=== PATIENT | male | born 1950 | race Caucasian/White ===

== ENCOUNTER → 2016-08-21 | Outpatient (CLI) | payer OTHER ==
[2016-08-21 18:45] LABS: ALT/SGPT 16 U/L (12-78); AST/SGOT 16 U/L (15-37); BLOOD UREA NITROGEN 17 mg/dl (7-18); BUN/CREATININE RATIO 13.2 (10-20); CALCIUM 9.1 mg/dl (8.5-10.1); CARBON DIOXIDE 29 mmol/L (21-32); CHLORIDE 102 mmol/L (98-107); GLUCOSE 98 mg/dl (70-99); POTASSIUM 4.1 mmol/L (3.5-5.1); SODIUM 138 mmol/L (136-145)
[2016-08-21 18:48] LABS: CHOLESTEROL 272 mg/dl (0-200); CHOLESTEROL/HDL RATIO 3.5; HDL CHOLESTEROL 78 mg/dl; LDL CHOLESTEROL CALCULATED 177 mg/dl; TRIGLYCERIDES 86 mg/dl (0-150); VERY LOW DENSITY LIPOPROT CALC 17 mg/dl
== END | disposition home or self-care (01) ==
LOC: C.LABMFLN 09:34
PROVIDERS: ATTEND Family Medicine
DX: E78.00 Pure hypercholesterolemia, unspecified (principal)

== ENCOUNTER → 2016-10-06 | Outpatient (CLI) | payer OTHER ==
[~2016-10-06] MED LIST: ACET-1256 PO; ASPI81TA28 PO; ATOR-22 PO; OXYC-57 PO; RANI-316 PO
[2016-10-06 18:58] LABS: LYME DISEASE AB IGM NEG (NEG)
[2016-10-06 19:01] LABS: LYME DISEASE AB IGG NEG (NEG)
== END | disposition home or self-care (01) ==
LOC: C.LABMFLN 13:56
PROVIDERS: ATTEND Family Medicine
DX: L03.90 Cellulitis, unspecified (principal)

== ENCOUNTER → 2017-02-12 | Outpatient (CLI) | payer OTHER | END | disposition home or self-care (01) | LOC: C.LABMFLN 08:48 | PROVIDERS: ATTEND Family Medicine | DX: I25.10 Atherosclerotic heart disease of native coronary artery without angina pectoris (principal) ==

== ENCOUNTER → 2017-05-02 | Outpatient (CLI) | payer OTHER ==
--- NOTE | 2017-05-02 14:16 | EXERCISE STRESS ECHO ---
*NOTICE TO RECEIVING [employer] This information is strictly Confidential and protected under [place] law. [place] law prohibits you from making any further disclosure of this information unless further disclosure is expressly permitted by the written consent of the person to whom it pertains or is authorized by law. A general authorization for the release of medical or other information is not sufficient for this purpose. Hospital accepts no responsibility if the information is made available to any other person, INCLUDING THE PATIENT. Interpretation Summary * Name: AR SKAGGS Study Date: 05/02/2017 09:17 AM BP: 115/84 mmHg * Patient Location: [facility] HR: 88 * : 1950 (M/d/yyyy) Gender: Male Height: 65 in * Age: 67 yrs Ethnicity: CA Weight: 143 lb * Ordering Physician: Florian Lucio * Referring Physician: Florian Lucio * Performed By: Zuleyka Warren RDCS * * Reason For Study: Atypical Chest Pain (786.59) Right Bundle Branch Block (426.4) * BSA: 1.7 m2 * -- Conclusions -- * Left ventricular systolic function is normal. * Grade I diastolic dysfunction, (abnormal relaxation pattern). * Right ventricular systolic pressure is normal. * Normal exercise echocardiogram without evidence of inducible ischemia Procedure Details * ECHOEX, CPT #[id number] * ECHO DOPPLER, CPT #[id number] * ECHO COLOR FLOW, CPT #[id number] Left Ventricular Findings with Stress * Normal exercise echocardiogram without evidence of inducible ischemia Left Ventricle * The left ventricle is normal in size. * There is normal left ventricular wall thickness. * Ejection Fraction = 50-55%. * Left ventricular systolic function is normal. * Grade I diastolic dysfunction, (abnormal relaxation pattern). * The left ventricular wall motion is normal at rest. Right Ventricle * The right ventricle is normal in size and function. * The right ventricular systolic function is normal as assessed by tricuspid annular plane systolic excursion (TAPSE) (normal >1.5 cm). Atria * The left atrial size is normal. * Right atrial size is normal. Mitral Valve * The mitral valve anatomy is normal. * Significant mitral regurgitation is absent. Tricuspid Valve * The tricuspid valve is not well visualized, but is grossly normal. * There is trace tricuspid regurgitation. * Right ventricular systolic pressure is normal. Aortic Valve * The aortic valve is normal in structure and function. * The aortic valve is trileaflet. * No hemodynamically significant valvular aortic stenosis. * There is no significant aortic regurgitation. Great Vessels * The aortic root is normal size. Pericardium * There is no pericardial effusion. Stress Parameters * Sinus rhythm with right bundle branch block * Stress ECG: No ST changes. No arrhythmias. * The stress portion of this study was personally supervised by the undersigned interpreting physician. * Rest heart rate was '88' BPM. * Rest blood pressure was '115/84' * Maximum heart rate achieved was 162 bpm. * Maximum heart rate was 104 % of maximum age-predicted heart rate. * Maximum blood pressure was '160/60' * Total exercise time was '08:00' * Maximum exercise MET level achieved was '10.10' METS * Maximum treadmill speed was '3.40' miles per hour. * Maximum treadmill elevation was '14.00'% grade. Left Ventricular Findings with Stress * Baseline EKG demonstrated right bundle branch block There were no significant ST segment changes with exercise or recovery Baseline echocardiographic images revealed normal wall motion There was normal augmentation of all valverde without development of wall motion abnormalities during exercise No symptoms reported Normal heart rate and blood pressure response to exercise MMode 2D Measurements and Calculations IVSd 1.0 cm IVSs 1.5 cm LVIDd 4.5 cm LVIDs 2.4 cm LVPWd 0.94 cm LVPWs 1.4 cm IVS/LVPW 1.1 FS 46.7 % EDV(Teich) 91.7 ml ESV(Teich) 19.9 ml EF(Teich) 78.3 % EDV(cubed) 90.2 ml ESV(cubed) 13.6 ml EF(cubed) 84.9 % % IVS thick 41.1 % % LVPW thick 44.0 % LV mass(C)d 150.1 grams LV mass(C)dI 87.5 grams/m\S\2 LV mass(C)s 106.7 grams LV mass(C)sI 62.2 grams/m\S\2 SV(Teich) 71.8 ml SI(Teich) 41.8 ml/m\S\2 SV(cubed) 76.5 ml SI(cubed) 44.6 ml/m\S\2 Ao root diam 2.9 cm Ao root area 6.4 cm\S\2 ACS 1.9 cm LA dimension 2.9 cm LA/Ao 1.0 LVAd ap4 27.8 cm\S\2 LVLd ap4 7.8 cm EDV(MOD-sp4) 83.7 ml EDV(sp4-el) 83.3 ml LVAs ap4 17.2 cm\S\2 LVLs ap4 6.9 cm ESV(MOD-sp4) 39.5 ml ESV(sp4-el) 36.4 ml EF(MOD-sp4) 52.9 % EF(sp4-el) 56.3 % LVAd ap2 25.4 cm\S\2 LVLd ap2 7.7 cm EDV(MOD-sp2) 75.3 ml EDV(sp2-el) 70.8 ml LVAs ap2 14.8 cm\S\2 LVLs ap2 6.3 cm ESV(MOD-sp2) 31.8 ml ESV(sp2-el) 29.2 ml EF(MOD-sp2) 57.8 % EF(sp2-el) 58.8 % LVLd %diff -1.30 % EDV(MOD-bp) 79.7 ml LVLs %diff -9.12 % ESV(MOD-bp) 36.8 ml EF(MOD-bp) 53.8 % SV(MOD-sp4) 44.2 ml SI(MOD-sp4) 25.8 ml/m\S\2 SV(MOD-sp2) 43.5 ml SI(MOD-sp2) 25.4 ml/m\S\2 SV(MOD-bp) 42.8 ml SI(MOD-bp) 25.0 ml/m\S\2 SV(sp4-el) 46.9 ml SI(sp4-el) 27.3 ml/m\S\2 SV(sp2-el) 41.7 ml SI(sp2-el) 24.3 ml/m\S\2 Doppler Measurements and Calculations MV E max roberto 42.3 cm/sec MV A max roberto 60.0 cm/sec MV E/A 0.71 MV dec time 0.30 sec Ao V2 max 106.4 cm/sec Ao max PG 4.5 mmHg Ao max PG (full) 1.2 mmHg LV V1 max PG 3.3 mmHg LV V1 max 91.5 cm/sec PA V2 max 74.4 cm/sec PA max PG 2.2 mmHg PI max roberto 111.7 cm/sec PI max PG 5.0 mmHg PI dec slope 97.9 cm/sec\S\2 PI P1/2t 334.3 msec TR max roberto 124.1 cm/sec
== END | disposition home or self-care (01) ==
LOC: C.CPL 07:40
PROVIDERS: ATTEND Family Medicine
DX: I45.10 Unspecified right bundle-branch block (principal); R07.89 Other chest pain

== ENCOUNTER → 2017-05-04 | Day surgery (SDC) | payer OTHER ==
[2017-04-27 09:18] VITALS: Ht 166.4 cm; Wt 63.8 kg
--- NOTE | 2017-04-27 09:54 | PAT Medication Instructions ---
Service Date Apr 27, 2017. Current Home Medication List Acetaminophen (Tylenol), 1,000 MG PO PRN Aspirin (Aspirin Ec), 81 MG PO QPM Atorvastatin (Lipitor), 20 MG PO QPM Ranitidine HCl (Acid Drapery Supervisor), 150 MG PO QPM Medication Instructions For Your Scheduled Surgery - Check with surgeon for instructions: Aspirin (Aspirin Ec), 81 MG PO QPM - Take the following medications the morning of surgery with a sip of water: Acetaminophen (Tylenol), 1,000 MG PO PRN (okay to take up to 4 hours prior to surgery if needed) - Take the following medications as scheduled the night before surgery: Atorvastatin (Lipitor), 20 MG PO QPM Ranitidine HCl (Acid Drapery Supervisor), 150 MG PO QPM Acetaminophen (Tylenol), 1,000 MG PO PRN (if needed) If you have any questions please call us at [phone] or [phone] or [phone]
--- NOTE | 2017-04-27 10:53 | DIAGNOSTIC IMAGING REPORT ---
CHEST PREADMISSION(PA/LAT) CLINICAL HISTORY: PAT preoperative evaluation COMPARISON STUDY: No previous studies for comparison. FINDINGS: The bones soft tissues and hemidiaphragms are normal. The cardiomediastinal silhouette is normal. The lungs are clear. The pulmonary vasculature is normal. Chronic fibrocalcific changes and upper lungs bilaterally most likely chronic. IMPRESSION: No acute process. Chronic change. The above report was generated using voice recognition software. It may contain grammatical, syntax or spelling errors. Electronically signed by: Peter Sharp M.D. 04/27/2017 10:52 AM Dictated Date/Time: 04/27/2017 10:51 AM
[2017-04-27 11:09] LABS: BASO % 0.8 %; BASO ABS # 0.06 K/uL (0-0.2); COMPLETE YES; EOS % 9.8 %; HEMATOCRIT 45.5 % (42-52); IG% 0.3 %; LYMPH % 24.1 %; LYMPH ABS # 1.75 K/uL (1.2-3.4); MEAN CELL VOLUME 92.7 fL (80-100); MEAN CORPUSCULAR HGB CONC 33.4 g/dl (32-36); MEAN PLATELET VOLUME 11.5 fL (7.4-10.4); MONO % 6.2 %; NEUT % 58.8 %; PLATELET COUNT 227 K/uL (130-400); RED BLOOD COUNT 4.91 M/uL (4.7-6.1); WHITE BLOOD COUNT 7.26 K/uL (4.8-10.8)
[2017-04-27 11:19] LABS: BUN/CREATININE RATIO 8.2 (10-20); CREATININE 1.04 mg/dl (0.60-1.40); PARTIAL THROMBOPLASTIN RATIO 1.2; PROTHROMBIN TIME (PATIENT) 11.2 SECONDS (9.0-12.0)
[2017-04-27 11:30] LABS: URINE APPEARANCE CLEAR (CLEAR); URINE BILIRUBIN NEG (NEG); URINE COLOR YELLOW; URINE EPITHELIAL CELL AUTO 0-5 /lpf (0-5); URINE NITRITE NEG (NEG); UROBILINOGEN NEG (NEG); ZZUR CULT IF INDIC CLEAN CATCH NO
[2017-04-27 11:31] LABS: MANUAL MICROSCOPIC REQUIRED? NO; REVIEW REQ? NO
--- NOTE | 2017-04-30 11:56 | History and Physical ---
History & Physical Date Apr 30, 2017. Chief Complaint Left elbow pain History of Present Illness The patient is a 67 year old male with complaints of left elbow pain and numbness. He has tried conservative therapy with no relief. He is scheduled for left cubital tunnel release with possible submuscular transposition. Past Medical/Surgical History PMHx: hypercholesteremia, sleep apnea, anxiety, osteoarthritis, GERD, history of vocal cord cancer PSHx: Catheterization, Left knee surgery, hernia repair, Right shoulder surgery, ORIF collar bone, removal of mass from vocal cord Additional History Hepatic Disease: No Endocrine Disorder: No Kidney Disease: No Hypertension: No Heart Disease: No Bleeding Tendencies: No Infectious Diseases: No Allergies Coded Allergies: Penicillins (Verified Allergy, Unknown, HIVES, 04/27/17) Sulfa Antibiotics (Verified Allergy, Unknown, HIVES, 04/27/17) Home Medications Scheduled Acetaminophen (Tylenol), 1,000 MG PO PRN Aspirin (Aspirin Ec), 81 MG PO QPM Atorvastatin (Lipitor), 20 MG PO QPM Ranitidine HCl (Acid Assembler Equipment), 150 MG PO QPM Physical Examination Skin: warm/dry, no rash Eyes: normal inspection, EOMI ENT: normal ENT inspection Head: normocephalic, atraumatic Neck: supple, no adenopathy Respiratory/Chest: lungs clear, normal breath sounds Cardiovascular: regular rate, rhythm, no murmur Abdomen / GI: normal bowel sounds, non tender Extremities: normal inspection, + pertinent finding ((+) tinel sign over the ulnar nerve, ) Neurologic/Psych: no motor/sensory deficits, alert, oriented x 3 Diagnosis Left cubital tunnel syndrome Plan of Treatment Patient is scheduled for a left cubital tunnel release with possible submuscular transposition. Patient has failed conservative therapy. Risks and benefits were discussed with the patient. The patient understands the risks and wishes to proceed. All questions were answered to their satisfaction.
[~2017-05-04] VITALS: Ht 166.4 cm; Wt 63.8 kg
[~2017-05-04] MED LIST changes: +ACETAMINOPHEN 325 MG TAB PO PRN; +ATROPINE SULFATE 0.1 MG/ML 5ML SYR IV PRN; +BUPIVACAINE/EPINEPHRINE 0.5% MPF 1:200,000 30 ML VIAL ONE; +CLINDAMYCIN 600 MG/54 ML D5W IV SCH; +EpHEDrine SULFATE INJ 50 MG/ML AMP IV PRN; +FENTANYL CITRATE INJ 50 MCG/1 ML 2 ML VIAL IV PRN; +FENTANYL CITRATE INJ 50 MCG/1 ML 2 ML VIAL ONE; +FLUMAZENIL 0.1 MG/1 ML 10 ML VIAL IV PRN; +HYDROmorphone INJ 2 MG/ML SYR/VIAL IV PRN; +LABETALOL HCL IV 5 MG/ML 20ML IV PRN; +LACTATED RINGER'S 1000ML 1,000 ML IV SCH; +LIDOCAINE HCL 2% 2 ML VIAL (20MG/ML) ONE; +MEPERIDINE HCL 25 MG/ML CARP IV PRN; +METOPROLOL TARTRATE 1 MG/ML VIAL ONE; +MIDAZOLAM HCL 1 MG/ML 2ML VIAL ONE; +NALOXONE HCL 0.4 MG/1 ML VIAL/CARP IV PRN; +ONDANSETRON INJ 2 MG/ML 2 ML VIAL IV PRN; +OXYCODONE/ACETAMINOPHEN 5-325 TAB PO PRN; +PHENYLEPHRINE 100MCG/ML 5ML SYR IV PRN; +PHENYLEPHRINE 100MCG/ML 5ML SYR ONE; +PROPOFOL IV EMULSION 10 MG/ML 20 ML VIAL IV ONE
[2017-05-04 05:38] VITALS: BP 125/79; PULSE 83; TEMP 36.8; O2SAT 97
--- NOTE | 2017-05-04 06:49 | History & Physical Bridge Note ---
H&P Re-Evaluation Bridge Note: I have examined the patient, reviewed the History & Physical and in the interval since the performance of the History & Physical I have noted the following changes of clinical significance: No changes noted
--- NOTE | 2017-05-04 07:45 | [facility] Operative Report ---
Operative Report Operative Date May 04, 2017. Pre-Operative Diagnosis Left cubital tunnel syndrome Post-Operative Diagnosis Same as preop Procedure(s) Performed Left Elbow Cubital Tunnel Release Surgeon Dr. Kelly Fire Marshal Refinery Surgeon(s) Ha Farooq PA-C Estimated Blood Loss 1 ml Findings as above Specimens None per Surgeon Drains 0 Anesthesia geta Complication(s) None Disposition Recovery Room / PACU Indications 67-year-old male long-standing numbness tingling left hand. He has failed conservative measures. EMG confirms left cubital tunnel syndrome. He wishes to proceed with a left cubital tunnel release. Description of Procedure The patient has failed conservative measures. After failing conservative measures, the patient wished to proceed with a cubital tunnel release. Risks, benefits and alternatives to surgery including, but not limited to, infection, DVT, pain, stiffness, need for revision surgery, failure to relieve all symptoms , damage to blood vessels, damage to nerves, risk of anesthesia were discussed with the patient and they wished to proceed. Patient was identified. Laterality was confirmed and marked. The patient received a preoperative antibiotic. They were transferred to the operating room and placed in the supine position and given IV sedation. The upper arm had a well padded tourniquet applied and then prepped and draped in the usual standard manner with ChloraPrep. The limb was exsanguinated. The tourniquet was inflated. Incision site for the cubital tunnel release was then anesthetized with combination of lidocaine and Marcaine. I made a longitudinal incision posterior to the medial epicondyle in line with the ulnar nerve. I sharply incised through the skin and used Bovie electrocautery to achieve hemostasis. I took care to preserve and protect crossing nerve branches. Identified the cubital tunnel. I then dissected free the ulnar nerve through the cubital tunnel ensuring a complete release the cubital tunnel. I then carried the dissection proximally releasing it from the heads of the triceps. I then carried the dissection distally releasing it from the 2 heads of the FCU. I then checked the stability of the ulnar nerve. The ulnar nerve was found to be stable. The wound was then thoroughly irrigated and the subcutaneous tissue closed with interrupted 2-0 Vicryl suture and the skin with running 4-0 Monocryl and Steri- Strips. A posterior splint was placed. All needle and sponge counts were correct at the end of the procedure. Patient was transferred to the PACU in stable condition without apparent complication. I attest to the content of the Intraoperative Record and any orders documented therein. Any exceptions are noted below.
--- NOTE | 2017-05-04 07:58 | Discharge Instructions ---
Discharge Instructions Date of Service May 04, 2017. Admission Reason for Admission: Left Elbow Cubital Tunnel Syndrome Discharge Discharge Diagnosis / Problem: S/P left cubital tunnel release Discharge Goals Goal(s): Decrease discomfort, Improve function Activity Recommendations Activity Limitations: per Instructions/Follow-up section . Instructions / Follow-Up Instructions / Follow-Up ACTIVITY RECOMMENDATIONS: * Avoid lifting anything heavier than a medium water glass until your first post operative visit. * Start physical therapy 2-3 days after your surgery. A script will be provided for you after your surgery. * No soaking your elbow in water. You are allowed to take a shower 48 hours after surgery. Make sure to just let soapy water run over the incision. No hot tubs or swimming pools SPECIAL CARE INSTRUCTIONS: * Your bandage should be left in place until 48 hours after surgery. . * Some drainage onto the dressing may occur. This is normal. * If the bandage feels excessively tight, you may loosen the elastic bandage. Then call the physician's office for further instructions. * If possible, keep your hand elevated above the level of your heart for the first 2 post operative days. * You should move your fingers regularly (50-100 motions per hour) unless otherwise instructed. SPECIAL PRECAUTIONS: * If you notice increased drainage, fever over 101 degrees F. or severe, unremitting pain, call your physician/office at . * You may have been prescribed pain medication. If you experience nausea and/or skin rash, discontinue this medication and contact our office for an alternative medication. FOLLOW UP VISIT: If appointment is not already scheduled: Please call [facility] to make a follow-up appointment with Dr. Silva or his PA 10-14 days after your surgery at . Current Hospital Diet Patient's current hospital diet: Regular Diet Discharge Diet Recommended Diet: Regular Diet Procedures Procedures Performed: Left Elbow Cubital Tunnel Release Pending Studies Studies pending at discharge: no Laboratory Results Lipid Panel Test 02/12/17 08:50 Range/Units Triglycerides Level 91 0-150 mg/dl Cholesterol Level 232 H 0-200 mg/dl HDL Cholesterol 78 mg/dl Cholesterol/HDL Ratio 3.0 LDL Cholesterol, Calculated 136 mg/dl Medical Emergencies . Who to Call and When: Medical Emergencies: If at any time you feel your situation is an emergency, please call [phone] immediately. . Non-Emergent Contact Non-Emergency issues call your: Surgeon Call Non-Emergent contact if: temperature is above 101.5, your pain is worsening, wound has increased drainage, wound has increased redness . "Provider Documentation" section prepared by Beau Farooq. . VTE Core Measure Inpt VTE Proph given/why not?: Treatment not indicated [place] Drug Monitoring Program Search Results: patient reviewed within database, no issues identified
--- NOTE | 2017-05-04 08:33 | Anesthesiology Progress Note ---
Anesthesia Post Op Note Date & Time May 04, 2017 at 08:33 Vital Signs Pain Intensity: 0 Vital Signs Past 12 Hours Date Time Temp Pulse Resp B/P (MAP) Pulse Ox O2 Delivery O2 Flow Rate FiO2 05/04/17 07:56 36.8 88 16 123/74 99 Oxymask 10 05/04/17 05:38 36.8 83 18 125/79 (94) 97 Room Air Notes Mental Status: alert / awake / arousable, participated in evaluation Pt Amnestic to Procedure: Yes Nausea / Vomiting: adequately controlled Pain: adequately controlled Airway Patency, RR, SpO2: stable & adequate BP & HR: stable & adequate Hydration State: stable & adequate Anesthetic Complications: no major complications apparent
[2017-05-04 08:45] VITALS: BP 105/68; PULSE 88; TEMP 37.1; O2SAT 92
[2017-05-04 09:15] VITALS: BP 120/72; PULSE 85; TEMP 37; O2SAT 95
== END | disposition home or self-care (01) ==
LOC: C.ACU 05:11
PROVIDERS: ATTEND Orthopaedic Surgery
DX: G56.22 Lesion of ulnar nerve, left upper limb (principal); E78.00 Pure hypercholesterolemia, unspecified; G47.30 Sleep apnea, unspecified; K21.9 Gastro-esophageal reflux disease without esophagitis; M19.90 Unspecified osteoarthritis, unspecified site; F41.9 Anxiety disorder, unspecified; Z79.82 Long term (current) use of aspirin; Z79.899 Other long term (current) drug therapy

== ENCOUNTER → 2017-08-15 | Outpatient (CLI) | payer OTHER ==
[~2017-08-15] MED LIST changes: -ACETAMINOPHEN 325 MG TAB PO PRN; -ATROPINE SULFATE 0.1 MG/ML 5ML SYR IV PRN; -BUPIVACAINE/EPINEPHRINE 0.5% MPF 1:200,000 30 ML VIAL ONE; -CLINDAMYCIN 600 MG/54 ML D5W IV SCH; -EpHEDrine SULFATE INJ 50 MG/ML AMP IV PRN; -FENTANYL CITRATE INJ 50 MCG/1 ML 2 ML VIAL IV PRN; -FENTANYL CITRATE INJ 50 MCG/1 ML 2 ML VIAL ONE; -FLUMAZENIL 0.1 MG/1 ML 10 ML VIAL IV PRN; -HYDROmorphone INJ 2 MG/ML SYR/VIAL IV PRN; -LABETALOL HCL IV 5 MG/ML 20ML IV PRN; -LACTATED RINGER'S 1000ML 1,000 ML IV SCH; -LIDOCAINE HCL 2% 2 ML VIAL (20MG/ML) ONE; -MEPERIDINE HCL 25 MG/ML CARP IV PRN; -METOPROLOL TARTRATE 1 MG/ML VIAL ONE; -MIDAZOLAM HCL 1 MG/ML 2ML VIAL ONE; -NALOXONE HCL 0.4 MG/1 ML VIAL/CARP IV PRN; -ONDANSETRON INJ 2 MG/ML 2 ML VIAL IV PRN; -OXYCODONE/ACETAMINOPHEN 5-325 TAB PO PRN; -PHENYLEPHRINE 100MCG/ML 5ML SYR IV PRN; -PHENYLEPHRINE 100MCG/ML 5ML SYR ONE; -PROPOFOL IV EMULSION 10 MG/ML 20 ML VIAL IV ONE
[2017-08-15 13:10] LABS: ALT/SGPT 14 U/L (12-78); AST/SGOT 15 U/L (15-37); BLOOD UREA NITROGEN 11 mg/dl (7-18); CALCIUM 9.1 mg/dl (8.5-10.1); CARBON DIOXIDE 28 mmol/L (21-32); CREATININE 1.13 mg/dl (0.60-1.40); GLUCOSE 100 mg/dl (70-99); POTASSIUM 3.9 mmol/L (3.5-5.1); SODIUM 138 mmol/L (136-145)
[2017-08-15 13:15] LABS: CHOLESTEROL 188 mg/dl (0-200); LDL CHOLESTEROL CALCULATED 106 mg/dl
== END | disposition home or self-care (01) ==
LOC: C.LABMFLN 10:20
PROVIDERS: ATTEND Family Medicine
DX: Z12.5 Encounter for screening for malignant neoplasm of prostate (principal); I25.10 Atherosclerotic heart disease of native coronary artery without angina pectoris; E78.00 Pure hypercholesterolemia, unspecified

== ENCOUNTER → 2017-08-28 | Outpatient (CLI) | payer OTHER ==
--- NOTE | 2017-08-28 07:35 | DIAGNOSTIC IMAGING REPORT ---
AORTIC ULTRASOUND CLINICAL HISTORY: E78.00 hypercholesterolemia. Smoker. Evaluate for abdominal aortic aneurysm. Positive family history. COMPARISON STUDY: No previous studies for comparison. FINDINGS: The proximal abdominal aorta measured 23 x 21 mm. The mid abdominal aorta measured 19 x 17 mm. The distal abdominal aorta measures 17 x 17 mm. The right iliac measures 12 x 11 mm. The left iliac measures 10 x 12 mm. IMPRESSION: No evidence of abdominal aortic aneurysm. Electronically signed by: Vikram Flores M.D. 08/28/2017 7:34 AM Dictated Date/Time: 08/28/2017 7:32 AM
== END | disposition home or self-care (01) ==
LOC: C.ULTR 07:04
PROVIDERS: ATTEND Family Medicine
DX: E78.00 Pure hypercholesterolemia, unspecified (principal)

== ENCOUNTER → 2017-10-16 | Day surgery (SDC) | payer OTHER ==
[2017-10-09 13:49] VITALS: BMI 24.0
[~2017-10-16] VITALS: Ht 165.1 cm; Wt 65.9 kg
[~2017-10-16] MED LIST changes: -ACET-1256 PO; +ACET-176 PO; +ASPCH81X PO; -ASPI81TA28 PO; -ATOR-22 PO; +LIDOCAINE HCL 2% 2 ML VIAL (20MG/ML) ONE; -OXYC-57 PO; +PROPOFOL IV EMULSION 10 MG/ML 20 ML VIAL IV ONE; -RANI-316 PO; +RANI150T85 PO; +SIMV20TA2 PO; +SODIUM CHLORIDE 0.9% 500ML 500 ML IV ONE
[2017-10-16 09:26] VITALS: Ht 165.1 cm; Wt 65.9 kg
--- NOTE | 2017-10-16 09:42 | Endo History and Physical ---
History & Physical Date of Service: Oct 16, 2017. Chief Complaint: HX OF POLYPS LLQ PAIN Referring Physician: DR PENA History of Present Illness 67 yo CM who presents for colonoscopy secondary to history of colon polyps. Past Surgical History Hx Cardiac Surgery: Yes (HEART CATH X 2 (NO STENTS)) Hx Internal Defibrillator: No Hx Pacemaker: No Hx Abdominal Surgery: Yes (INGUINAL HERNIA) Hx of Implantable Prosthesis: No Hx Post-Op Nausea and Vomiting: No Hx Cancer Surgery: Yes (VOCAL CORD SURGERY X 2) Hx Thoracic Surgery: No Hx Orthopedic: Yes (L KNEE LUMP REMOVAL,R SHOULDER BONE SPUR/R CTR/R COLLARBONE ,R RCR) Hx Urinary Tract Surgery: No Family History None Social History Smoking Status: Current Every Day Smoker Hx Substance Use: No Allergies Coded Allergies: Penicillins (Verified Allergy, Unknown, HIVES, 10/16/17) Sulfa Antibiotics (Verified Allergy, Unknown, HIVES, 10/16/17) Current Medications Reported Home Medications Medications Dose Route/Sig Max Daily Dose Days Date Category Apap Extra Strength (Acetaminophen) 500 Mg Tab 2 Tab PO DIRECTED PRN 10/09/17 Reported Zantac (Ranitidine HCl) 150 Mg Tab 150 Mg PO QPM 10/09/17 Reported Aspirin Chewable (Aspirin) 81 Mg Chew 81 Mg PO QPM 10/09/17 Reported Zocor (Simvastatin) 20 Mg Tab 20 Mg PO QPM 10/09/17 Reported Vital Signs Weight (Kilograms): 65.91 Height (Feet): 5 Height (Inches): 5 Date Time Temp Pulse Resp B/P (MAP) Pulse Ox O2 Delivery O2 Flow Rate FiO2 10/16/17 09:32 36.8 84 20 120/89 (99) 97 Room Air Physical Exam General Appearance: WD/WN, no apparent distress Respiratory/Chest: Auscultation: breath sounds normal Cardiovascular: Heart Auscultation: RRR Abdomen: Bowel Sounds: normal Inspection & Palpation: soft, non-distended, no tenderness, guarding & rebound Assessment and Plan Assessment: 67 yo CM who presents for colonoscopy secondary to history of colon polyps. Plan: Proceed with colonoscopy.
--- NOTE | 2017-10-16 10:42 | Discharge Instructions ---
Endoscopy Patient Instructions Date / Procedure(s) Performed Oct 16, 2017. Colonoscopy Allergy Information Coded Allergies: Penicillins (Verified Allergy, Unknown, HIVES, 10/16/17) Sulfa Antibiotics (Verified Allergy, Unknown, HIVES, 10/16/17) Discharge Date / Findings Oct 16, 2017. Colon polyp Internal hemorrhoids Provider Instructions Activity Restrictions - No exercising or heavy lifting for 24 hours. - Do not drink alcohol the day of the procedure. - Do not drive a car or operate machinery until the day after the procedure. - Do not make any important decisions or sign important papers in 24 hours after the procedure. Following Day: - Return to full activity which may include returning to work/school. Diet Start your diet with liquids and light foods (jello, soup, juice, toast). Then eat your usual diet if not nauseated. Treatment For Common After Affects For mild abdominal pain, bloating, or excessive gas: - Rest - Eat lightly - Lie on right side Follow-Up Information Follow-up with DR PENA as scheduled Anesthesia Information What You Should Know You have had a procedure that required some medicine to reduce anxiety and discomfort. This treatment is called moderate sedation. After receiving the treatment, you may be sleepy, but you will be able to breathe on your own. The effects of the treatment may last for several hours. Follow these instructions along with Activity/Diet recommendations noted above: * Do NOT do anything where dizziness or clumsiness would be dangerous. * Rest quietly at home today, then you can be up and about tomorrow. * Have a responsible person stay with you the rest of today. * You may have had an I.V. today. If so, you may take the dressing off later today. Recommendations Call your doctor if: * Trouble breathing * Continuous vomiting for more than 24 hours * Temperature above 101 degrees * Severe abdominal pain or bloating * Pain not relieved by pain medicine ordered * There is increased drainage or redness from any incision * A large amount of rectal bleeding greater than 2-3 tablespoons. (If you had a polyp/s removed or have hemorrhoids, a small amount of blood - from the rectum is to be expected.) * You have any unanswered questions or concerns. IN THE EVENT OF A SERIOUS EMERGENCY, GO TO THE NEAREST EMERGENCY ROOM Your discharge instructions were prepared by provider Harley Gorman. Patient Instructions Signature Page Tulio Lowe Patient (or Guardian) Signature/Date: I have read and understand the instructions given to me by my caregivers. Caregiver/RN/Doctor Signature/Date: The above-named patient and/or guardian has received patient instructions on this date. + Original Patient Signature Page (only) stays with chart. Please make copy for patient.
--- NOTE | 2017-10-16 10:50 | GI REPORT ---
Procedure Date: 10/16/2017 10:09 AM Procedure: Colonoscopy Indications: High risk colon cancer surveillance: Personal history of colonic polyps Medicines: Monitored Anesthesia Care Complications: No immediate complications. Estimated Blood Loss: Estimated blood loss: none. Procedure: Pre-Anesthesia Assessment: - Prior to the procedure, a History and Physical was performed, and patient medications and allergies were reviewed. The patient's tolerance of previous anesthesia was also reviewed. The risks and benefits of the procedure and the sedation options and risks were discussed with the patient. All questions were answered, and informed consent was obtained. Prior Anticoagulants: The patient has taken aspirin, last dose was 1 day prior to procedure. ASA Grade Assessment: III - A patient with severe systemic disease. After reviewing the risks and benefits, the patient was deemed in satisfactory condition to undergo the procedure. After I obtained informed consent, the scope was passed under direct vision. Throughout the procedure, the patient's blood pressure, pulse, and oxygen saturations were monitored continuously. The scope was introduced through the anus and advanced to the terminal ileum. The colonoscopy was performed without difficulty. The patient tolerated the procedure well. The quality of the bowel preparation was good. The terminal ileum, ileocecal valve, appendiceal orifice, and rectum were photographed. Findings: The perianal and digital rectal examinations were normal. A 5 mm polyp was found in the sigmoid colon. The polyp was sessile. The polyp was removed with a hot snare. Resection and retrieval were complete. Non-bleeding internal hemorrhoids were found during retroflexion. The hemorrhoids were small. Impression: - One 5 mm polyp in the sigmoid colon, removed with a hot snare. Resected and retrieved. - Non-bleeding internal hemorrhoids. Recommendation: - Resume previous diet. - Continue present medications. - Repeat colonoscopy for surveillance based on pathology results. - Return to primary care physician as previously scheduled. Harley Gorman DO 10/16/2017 10:49:16 AM This report has been signed electronically. Note Initiated On: 10/16/2017 10:09 AM I attest to the content of the Intraoperative Record and orders documented therein, exceptions below
--- NOTE | 2017-10-16 10:56 | Anesthesiology Progress Note ---
Anesthesia Post Op Note Date & Time Oct 16, 2017 at 10:56 Vital Signs Pain Intensity: 0 Vital Signs Past 12 Hours Date Time Temp Pulse Resp B/P (MAP) Pulse Ox O2 Delivery O2 Flow Rate FiO2 10/16/17 10:40 36.5 86 18 93/66 (75) 97 Room Air 10/16/17 09:32 36.8 84 20 120/89 (99) 97 Room Air Notes Mental Status: alert / awake / arousable, participated in evaluation Pt Amnestic to Procedure: Yes Nausea / Vomiting: adequately controlled Pain: adequately controlled Airway Patency, RR, SpO2: stable & adequate BP & HR: stable & adequate Hydration State: stable & adequate Anesthetic Complications: no major complications apparent
[2017-10-16 11:15] VITALS: BP 118/77; PULSE 83; O2SAT 98
== END | disposition home or self-care (01) ==
LOC: C.GI 09:07
PROVIDERS: ATTEND Internal Medicine
DX: R10.32 Left lower quadrant pain (principal); Z86.010 Personal history of colon polyps; D12.5 Benign neoplasm of sigmoid colon; K64.8 Other hemorrhoids; F17.200 Nicotine dependence, unspecified, uncomplicated; G47.33 Obstructive sleep apnea (adult) (pediatric); Z88.0 Allergy status to penicillin; Z88.2 Allergy status to sulfonamides; Z79.82 Long term (current) use of aspirin; Z79.899 Other long term (current) drug therapy